=== PATIENT | male | born 1995 | race Native Hawaiian/Other Pacific Islander ===

== ENCOUNTER 2018-04-22 15:40 | Emergency (ER) | payer OTHER ==
[~2018-04-22] VITALS: Ht 172.7 cm; Wt 104.3 kg
[2018-04-22 17:26] VITALS: BP 154/78; TEMP 100.9
== END 2018-04-22 17:28 | disposition home or self-care (01) ==
LOC: ED 15:40
DX: J02.9 Acute pharyngitis, unspecified (principal)
CPT/HCPCS: 87651; 99283